=== PATIENT | female | born 1980 | race African-American/Black ===

== ENCOUNTER 2018-09-05 18:56 | Emergency (ER) | payer MEDICARE, MEDICAID ==
[~2018-09-05] VITALS: Ht 157.5 cm; Wt 70.8 kg
[~2018-09-05 18:56] MED LIST: ALBUTEROL SULF8.5 GM INH; HUMALOG100 UNIT/2 SQ; LANTUS100 UNIT/1 SQ
--- NOTE | 2018-09-05 19:05 | Emergency Room Report ---
History of Present Illness General Chief Complaint: Abnormal Labs Source: Patient, EMS Present Illness HPI This is a 38-year-old female with a history of insulin-dependent diabetes. She presents with chief complaint of bilateral feet pain. Onset today. She does have diabetic neuropathy for which she is on Neurontin. No nausea no vomiting. Does have some abdominal cramping pain. [place] her blood sugar was over 400. Patient complaining of pain of 7 out of 10. No trauma. Nothing made it better. Walking makes it worse. Allergies: Coded Allergies: No Known Allergies (Unverified , 07/07/12) Patient History Past Medical History: see triage record, old chart reviewed, DM, HTN Past Surgical History: other Pertinent Family History: none Social History: Denies: smoking Last Menstrual Period: 08/30/18 Now: No Immunizations: other Reviewed Nursing Documentation: PMH: Agreed; PSxH: Agreed Nursing Documentation-PMH Past Medical History: No History, Except For Hx Cardiac Problems: No - hyperthyroidism Hx Diabetes: Yes Hx Neurological Problems: No - psych as per H and P Hx Transient Ischemic Attacks: No Hx Dementia: No Hx Alzheimer's Disease: No Hx Parkinson's Disease: No Hx Meningitis: No Hx Dizziness: Yes Review of Systems Eye: Denies: eye pain, blurred vision ENT: Denies: ear pain, nose congestion, throat swelling Respiratory: Denies: cough, shortness of breath Cardiovascular: Denies: chest pain, palpitations Gastrointestinal: Reports: abdominal pain; Denies: diarrhea, nausea, vomiting Musculoskeletal: Reports: muscle pain; Denies: back pain, joint pain Skin: Denies: rash Neurological: Denies: headache, numbness Endocrine: Denies: increased thirst, increased urine Hematologic/Lymphatic: Denies: easy bruising All Other Systems: negative except mentioned in HPI Physical Exam Vital Signs Date Time Temp Pulse Resp B/P (MAP) Pulse Ox O2 Delivery O2 Flow Rate FiO2 09/05/18 18:53 98.6 76 14 162/88 99 Room Air vitals with high blood pressure Sp02 EP Interpretation: reviewed, normal General Appearance: well appearing, no apparent distress, alert Head: normocephalic, atraumatic Eyes: bilateral eye PERRL, bilateral eye EOMI ENT: hearing grossly normal, normal pharynx, other - Large goiter. No bruit Neck: full range of motion, supple, no meningismus Respiratory: chest non-tender, lungs clear, normal breath sounds Cardiovascular #1: regular rate, rhythm, no murmur Gastrointestinal: normal bowel sounds, non tender, no mass, no organomegaly, no bruit, non-distended Musculoskeletal: back normal, gait/station normal, normal range of motion Psychiatric: mood/affect normal Skin: warm/dry Medical Decision Making Diagnostic Impression: Primary Impression: Hyperglycemia due to type 1 diabetes mellitus Additional Impressions: Hypertension Qualified Codes: I10 - Essential (primary) hypertension Anemia Qualified Codes: D64.9 - Anemia, unspecified LEXY (acute kidney injury) Goiter ER Course Patient presents with hypoglycemia. No evidence of DKA. Blood glucose improve after insulin IV fluid. Blood pressure improved also. She claimed that she is compliant with her medication. Yet, she goes to the hospital at least 3-4 times a month. She was recently admitted to [facility] a few days ago. No evidence of infection. We'll discharge home. Last Vital Signs Date Time Temp Pulse Resp B/P (MAP) Pulse Ox O2 Delivery O2 Flow Rate FiO2 09/05/18 18:53 98.6 76 14 162/88 99 Room Air Status: improved Disposition: HOME, SELF-CARE Condition: Improved Additional Instructions: Take your insulin and blood pressure medication. Follow-up with your Dr. in 2 to 3 days. Return if symptom worsen. Talon Riggs MD Sep 05, 2018 19:05
[2018-09-05] MEDS ORDERED: Insulin Human Regular 100units/ml 3ml IV ONE ×3 (19:15→21:45)
[2018-09-05 19:28] LABS: BASOPHILS % (AUTO) 0.9 % (0.0-2.0); EOSINOPHILS % (AUTO) 1.5 % (0.0-3.0); HEMATOCRIT 31.2 % (37.0-47.0); HEMOGLOBIN 9.9 G/DL (12.0-16.0); LYMPHOCYTES % (AUTO) 31.1 % (20.0-45.0); MEAN CORPUSCULAR VOLUME 78 FL (80-99); MONOCYTES % (AUTO) 7.2 % (1.0-10.0); NEUTROPHILS % (AUTO) 59.3 % (45.0-75.0); PLATELET COUNT 234 K/UL (150-450); RED BLOOD COUNT 3.99 M/UL (4.20-5.40); RED CELL DISTRIBUTION WIDTH 16.8 % (11.6-14.8)
[2018-09-05 19:31] LABS: APPEARANCE,URINE CLEAR; BILIRUBIN, URINE NEGATIVE (NEGATIVE); COLOR,URINE PALE YELLOW; GLUCOSE, URINE (UA) 4+ (NEGATIVE); KETONES,URINE NEGATIVE (NEGATIVE); LEUKOCYTE ESTERASE ,URINE NEGATIVE (NEGATIVE); NITRITE,URINE NEGATIVE (NEGATIVE); PH,URINE 7 (4.5-8.0); PROTEIN,URINE NEGATIVE (NEGATIVE); UROBILINOGEN,URINE NORMAL MG/DL (0.0-1.0)
[2018-09-05 19:45] VITALS: BP 179/110
[2018-09-05 19:49] LABS: ANION GAP 7 mmol/L (5-15); BLOOD UREA NITROGEN 28 mg/dL (7-18); CARBON DIOXIDE 29 MMOL/L (21-32); CHLORIDE 94 MMOL/L (98-107); CREATININE 1.6 MG/DL (0.55-1.30); POTASSIUM 4.9 MMOL/L (3.5-5.1); SODIUM 130 MMOL/L (136-145)
[2018-09-05] MEDS ORDERED: Ketorolac 30mg Inj IV ONE (20:00)
[2018-09-05] MEDS ORDERED: LISINOPRIL5 MG ORAL (20:22)
[2018-09-05] MEDS ORDERED: GABAPENTIN100 MG ORAL (20:22)
[2018-09-05 21:57] VITALS: BP 146/74
== END 2018-09-05 21:57 | disposition home or self-care (01) ==
LOC: EDBD 18:56 → EMR 20:55
DX: E10.65 Type 1 diabetes mellitus with hyperglycemia (principal); E10.40 Type 1 diabetes mellitus with diabetic neuropathy, unspecified; Z79.4 Long term (current) use of insulin; I10 Essential (primary) hypertension; D64.9 Anemia, unspecified
CPT/HCPCS: 36415; 80048; 80307; 81001; 81025; 82962; 85025; 96361; 96374; 96375; 96376; 99284; J1815; J1885